=== PATIENT | female | born 1970 | race Caucasian/White ===

== ENCOUNTER 2018-05-16 17:51 | Observation (INO) | payer OTHER ==
[2018-05-16 17:54] VITALS: BMI 30.2
[2018-05-16] MEDS ORDERED: Sodium Chloride 0.9% 1,000 ML IV SCH (18:30)
[2018-05-16 18:44] LABS: MONO # 0.5 K/uL (0.0-0.8)
[2018-05-16 18:47] LABS: INR 1.3
[2018-05-16 18:52] LABS: ALB/GLOB RATIO 1.2 (1.0-2.1); ALBUMIN 4.2 g/dL (3.5-5.0); ALT/SGPT 14 U/L (9-52); AST/SGOT 17 U/L (14-36); BLOOD UREA NITROGEN 7 mg/dL (7-17); CALCIUM 8.9 mg/dl (8.6-10.4); GFR NON-AFRICAN AMERICAN > 60; HDL CHOLESTEROL 37 mg/dL (30-70)
--- NOTE | 2018-05-16 18:56 | CT ---
Date of service: 05/16/2018 PROCEDURE: CT HEAD WITHOUT CONTRAST. HISTORY: Code Stroke Left facial numbness COMPARISON: None. TECHNIQUE: Axial computed tomography images were obtained through the head/brain without intravenous contrast. Supplemental Coronal and Sagittal projections created and reviewed. Radiation dose: Total exam DLP = <inf_radiation_dlp> mGy-cm. This CT exam was performed using one or more of the following dose reduction techniques: Automated exposure control, adjustment of the mA and/or kV according to patient size, and/or use of iterative reconstruction technique. FINDINGS: HEMORRHAGE: No intracranial hemorrhage. BRAIN: No mass effect or edema. No atrophy or chronic microvascular ischemic changes. VENTRICLES: Unremarkable. No hydrocephalus. CALVARIUM: Unremarkable. PARANASAL SINUSES: Unremarkable as visualized. No significant inflammatory changes. MASTOID AIR CELLS: Unremarkable as visualized. No inflammatory changes. OTHER FINDINGS: None. IMPRESSION: No acute intracranial abnormalities. No significant findings to account for the clinical presentation. Code stroke protocol: Study completed 18:35. Radiologist notified 18:48. Results conveyed verbally at 18:53 Interpretation finalized and available for review 18:54.
[2018-05-16 19:02] LABS: LDL CHOLESTEROL 123 mg/dL (0-129)
[2018-05-16 19:29] LABS: BASO % 0.4 % (0.0-2.0); NEUT # 6.9 K/uL (1.8-7.0)
--- NOTE | 2018-05-16 19:52 | C.PDOC ---
History Of Present Illness Patient is a 47 year old female, with a PMHx of RA and lupus, who presents to the ED c/o left face and left arm numbness that began at 8 in the morning. She denies any CP, SOB, weakness, slurred speech, or other medical complaints at moment. Time Seen by Provider: 05/16/18 18:12 Chief Complaint (Nursing): Palpitations History Per: Patient History/Exam Limitations: no limitations Recent travel outside of the [place]: No Additional History Per: Patient Past Medical History Reviewed: Historical Data, Nursing Documentation, Vital Signs Vital Signs: Last Vital Signs Temp 97.6 F 05/16/18 17:54 Pulse 85 05/16/18 19:02 Resp 18 05/16/18 19:02 BP 125/83 05/16/18 19:02 Pulse Ox 96 05/16/18 19:02 - Medical History PMH: Anemia, Anxiety Surgical History: No Surg Hx Family History: States: No Known Family Hx - Social History Hx Alcohol Use: No Hx Substance Use: No - Immunization History Hx Tetanus Toxoid Vaccination: No Hx Influenza Vaccination: No Hx Pneumococcal Vaccination: No Review Of Systems Constitutional: Negative for: Weakness Cardiovascular: Negative for: Chest Pain Respiratory: Negative for: Shortness of Breath Neurological: Positive for: Numbness (left face and left arm ). Negative for: Change in Speech Physical Exam - Physical Exam Appears: Non-toxic, No Acute Distress Skin: Normal Color, Warm, Dry Head: Atraumatic, Normacephalic Oral Mucosa: Moist Neck: Normal ROM, Supple Cardiovascular: Rhythm Regular, No Murmur Respiratory: Normal Breath Sounds, No Rales, No Rhonchi, No Wheezing Gastrointestinal/Abdominal: Soft, No Tenderness, No Guarding, No Rebound Extremity: Normal ROM Neurological/Psych: Oriented x3, Normal Speech, Normal Cognition ED Course And Treatment - Laboratory Results Result Diagrams: 05/16/18 18:34 05/16/18 18:34 Lab Results: PT 14.0 SECONDS (9.7-12.2) H 05/16/18 18:34 INR 1.3 05/16/18 18:34 APTT 33 SECONDS (21-34) 05/16/18 18:34 Troponin I < 0.0120 ng/mL (0.00-0.120) 05/16/18 18:34 Total Bilirubin 0.3 mg/dL (0.2-1.3) 05/16/18 18:34 AST 17 U/L (14-36) 05/16/18 18:34 ALT 14 U/L (9-52) 05/16/18 18:34 Alkaline Phosphatase 87 U/L (38-126) 05/16/18 18:34 Total Protein 7.6 g/dL (6.3-8.3) 05/16/18 18:34 Albumin 4.2 g/dL (3.5-5.0) 05/16/18 18:34 Globulin 3.4 gm/dL (2.2-3.9) 05/16/18 18:34 Albumin/Globulin Ratio 1.2 (1.0-2.1) 05/16/18 18:34 O2 Sat by Pulse Oximetry: 96 (on RA) Pulse Ox Interpretation: Normal - Other Rad CXR X-Ray: Viewed By Me, Read By Radiologist - CT Scan/US CT Head Other Rad Studies (CT/US): Read By Radiologist, Radiology Report Reviewed CT/US Interpretation: IMPRESSION: No acute intracranial abnormalities. No s ignificant findings to account for the clinical presentation. NIHSS Stroke Scale - Date/Time Evaluation Performed Date Performed: 05/16/18 Time Performed: 20:57 When Was NIHSS Performed: Baseline - How Severe is the Stroke Level of Consciousness: 0=Alert LOC to Questions: 0=Both comments correct LOC to commands: 0=Obeys both correctly Best Gaze: 0=Normal Visual: 0=No visual loss Facial: 0=Normal Motor Arm - Left: 0=No drift Motor Arm - Right: 0=No drift Motor Leg - Left: 0=No drift Motor Leg - Right: 0=No drift Limb Ataxia: 0=Absent Sensory: 1=Mild to moderate loss Best Language: 0=No aphasia Dysarthia: 0=Normal articulation Extinction & Inattention (Neglect): 0=Normal, no object Score: 1 rTPA Inclusion/Exclusion - Refusal of Treatment Patient Refused Treatment: No - Inclusion Criteria for Altepase Patient is 18 years or Older: Yes The Clinical Diagnosis of Ischemic Stroke That is Causing a Potentially Disabling Neurological Deficit: No Time of Onset is Well Established to be Less Than 270 Minute Before Treatment Would Begin: No Risk/Benefit Discussed With Patient/Family Member Present: No Medical Decision Making Medical Decision Making: code stroke - labs imagin gpendignPlan: CAT Head, EKG, Bloodwork, CXR, Urinalysis ordered and reviewed. IV Fluids administered. low nih not tpa candmatty. sujey tinoco. seen by pmd bedside. noted h/h. pt denies gi bleed refuses rectal asa given. accepted pmdekg nsr [address] twave changes Disposition - Disposition Disposition: HOSPITALIZED Disposition Time: 20:56 Condition: STABLE - Clinical Impression Clinical Impression: Numbness - Scribe Statement The provider has reviewed the documentation as recorded by the Dylan Tran All medical record entries made by the Dylan were at my direction and personally dictated by me. I have reviewed the chart and agree that the record accurately reflects my personal performance of the history, physical exam, medical decision making, and the department course for this patient. I have also personally directed, reviewed, and agree with the discharge instructions and disposition. Decision To Admit - Pt Status Changed To: Hospital Disposition Of: Observation - . Bed Request Type: Telemetry Admitting Physician: Page Garcia Patient Diagnosis: Numbness
[2018-05-16 20:02] LABS: EOS # 0.4 K/uL (0.0-0.7); EOS % 3.4 % (0.0-4.0); LYMPH # 4.1 K/uL (1.0-4.3); LYMPH % 34.3 % (20.0-40.0); MEAN CORPUSCULAR HEMOGLOBIN 13.1 pg (27.0-31.0); MEAN CORPUSCULAR HGB CONC 26.6 g/dL (33.0-37.0); MEAN PLATELET VOLUME 8.6 fL (7.2-11.7); NEUT % 57.9 % (50.0-75.0); RBC 6.15 Mil/uL (3.80-5.20); RED CELL DISTRIBUTION WIDTH 25.2 % (11.5-14.5)
[2018-05-16 20:07] LABS: MEAN CELL VOLUME 49.1 fL (81.0-99.0)
[2018-05-16 20:10] LABS: SQUAMOUS EPITHIAL 4 /hpf (0-5); URINE BACTERIA RARE (<OCC); URINE BILIRUBIN NEGATIVE (NEGATIVE); URINE BLOOD 1+ (NEGATIVE); URINE CLARITY Clear (Clear); URINE COLOR Straw (YELLOW); URINE GLUCOSE (UA) NORMAL (Normal); URINE LEUKOCYTE ESTERASE TRACE Leu/uL (Negative); URINE PROTEIN NEGATIVE (NEGATIVE); URINE UROBILINOGEN NORMAL mg/dL (0.2-1.0)
[2018-05-16 20:11] LABS: HCG,QUALITATIVE URINE NEGATIVE (NEGATIVE)
--- NOTE | 2018-05-16 23:11 | CP.PCM.HP ---
Past Patient History - Past Social History Smoking Status: Never Smoked - CARDIAC Hx Cardiac Disorders: Yes Other/Comment: leaky valve - PULMONARY Hx Respiratory Disorders: Yes Other/Comment: lung capacity = 70 percent - HEMATOLOGICAL/ONCOLOGICAL Hx Anemia: Yes - PSYCHIATRIC Hx Anxiety: Yes Hx Substance Use: No - SURGICAL HISTORY Hx Surgeries: Yes Other/Comment: fibroid removed Meds Allergies/Adverse Reactions: Allergies Allergy/AdvReac Type Severity Reaction Status Date / Time anesthetic Allergy Uncoded 05/16/18 17:53 Results - Vital Signs Recent Vital Signs: Last Vital Signs Temp 97.6 F 05/16/18 17:54 Pulse 73 05/16/18 20:30 Resp 16 05/16/18 20:30 BP 112/79 05/16/18 20:30 Pulse Ox 96 05/16/18 20:58 - Labs Result Diagrams: 05/16/18 18:34 05/16/18 18:34 Labs: Laboratory Results - last 24 hr 05/16/18 05/16/18 05/16/18 18:34 18:34 18:34 WBC 12.0 H RBC 6.15 H Hgb 8.0 L Hct 30.2 L MCV 49.1 L D MCH 13.1 L MCHC 26.6 L RDW 25.2 H Plt Count 388 MPV 8.6 Neut % (Auto) 57.9 Lymph % (Auto) 34.3 [place] % (Auto) 4.0 Eos % (Auto) 3.4 Baso % (Auto) 0.4 Neut # (Auto) 6.9 Lymph # (Auto) 4.1 [place] # (Auto) 0.5 Eos # (Auto) 0.4 Baso # (Auto) 0.0 Differential Comment PT 14.0 H INR 1.3 APTT 33 Sodium 138 Potassium 3.9 Chloride 102 Carbon Dioxide 27 Anion Gap 12 BUN 7 Creatinine 0.6 L Est GFR ( Amer) > 60 Est GFR (Non-Af Amer) > 60 Random Glucose 96 Hemoglobin A1c Calcium 8.9 Total Bilirubin 0.3 AST 17 ALT 14 Alkaline Phosphatase 87 Troponin I < 0.0120 Total Protein 7.6 Albumin 4.2 Globulin 3.4 Albumin/Globulin Ratio 1.2 Triglycerides 124 Cholesterol 179 LDL Cholesterol Direct 123 HDL Cholesterol 37 Urine Color Urine Clarity Urine pH Ur Specific [place] Urine Protein Urine Glucose (UA) Urine Ketones Urine Blood Urine Nitrate Urine Bilirubin Urine Urobilinogen Ur Leukocyte Esterase Urine WBC (Auto) Urine RBC (Auto) Ur Squamous Epith Cells Urine Bacteria Urine HCG, Qual Blood Type Antibody Screen 05/16/18 05/16/18 05/16/18 18:34 18:34 19:58 WBC RBC Hgb Hct MCV MCH MCHC RDW Plt Count MPV Neut % (Auto) Lymph % (Auto) [place] % (Auto) Eos % (Auto) Baso % (Auto) Neut # (Auto) Lymph # (Auto) [place] # (Auto) Eos # (Auto) Baso # (Auto) Differential Comment PT INR APTT Sodium Potassium Chloride Carbon Dioxide Anion Gap BUN Creatinine Est GFR ( Amer) Est GFR (Non-Af Amer) Random Glucose Hemoglobin A1c 6.1 Calcium Total Bilirubin AST ALT Alkaline Phosphatase Troponin I Total Protein Albumin Globulin Albumin/Globulin Ratio Triglycerides Cholesterol LDL Cholesterol Direct HDL Cholesterol Urine Color Straw Urine Clarity Clear Urine pH 7.0 Ur Specific [place] 1.004 Urine Protein Negative Urine Glucose (UA) Normal Urine Ketones Negative Urine Blood 1+ H Urine Nitrate Negative Urine Bilirubin Negative Urine Urobilinogen Normal Ur Leukocyte Esterase Trace Urine WBC (Auto) 3 Urine RBC (Auto) 1 Ur Squamous Epith Cells 4 Urine Bacteria Rare Urine HCG, Qual Negative Blood Type O POSITIVE Antibody Screen Negative
[2018-05-16 23:50] LABS: IRON 24 ug/dL (37-170)
[2018-05-17] LABS: % IRON SATURATION 6 (20-55); TOTAL IRON BINDING CAPACITY 391 ug/dL (250-450)
[2018-05-17 00:46] LABS: FERRITIN 11.6 ng/mL
[2018-05-17] MEDS: Sodium Chloride 0.9% 1,000 ML IV SCH ×3 (01:11→19:15)
[2018-05-17 01:16] LABS: FOLATE 17.3 ng/mL
[2018-05-17 01:48] VITALS: RESP 20
--- NOTE | 2018-05-17 08:23 | RAD ---
Chest x-ray single frontal view HISTORY: Code stroke. COMPARISON: 05/20/2016 Findings: No focal infiltrate or effusion. Heart size within normal limits. Impression: No focal infiltrate or effusion.
[2018-05-17 08:37] LABS: CK-MB < 0.22 ng/mL (0.0-3.38)
[2018-05-17] MEDS: guaiFENesin DM 200 mg-20 mg/10 ml UD PO PRN ×2 (11:55→21:46)
[2018-05-17] MEDS ORDERED: Gadodiamide 287 mg/ml 20 ml IV ONE (12:58)
--- NOTE | 2018-05-17 15:42 | MRI ---
Date of service: 05/17/2018 PROCEDURE: MRI BRAIN WITH AND WITHOUT CONTRAST HISTORY: CVA COMPARISON: Comparison made with CT scan brain dated 05/16/2018. TECHNIQUE: Multiplanar, multisequence MR images of the brain were obtained with and without intravenous contrast enhancement. FINDINGS: HEMORRHAGE: No acute parenchymal, subarachnoid or extra-axial hemorrhage. No evidence of hemosiderin deposition identified on gradient echo weighted sequence. DWI: No evidence of an acute or early subacute infarction seen on diffusion imaging. BRAIN PARENCHYMA: No mass,mass effect or edema. No atrophy or chronic microvascular ischemic changes. Mild atrophy.. ENHANCEMENT: No enhancing parenchymal nor extra-axial masses or collections. No evidence of unusual meningeal enhancement. VENTRICLES: No obstructive hydrocephalus. CRANIUM: Unremarkable. ORBITS: Grossly unremarkable. PARANASAL SINUSES/MASTOIDS: Clear VASCULAR SYSTEM: Visualized major vascular flow voids at skull base appear patent. T OTHER FINDINGS: None . IMPRESSION: No acute intracranial hemorrhage or infarct. No enhancing lesions seen. Mild atrophy
--- NOTE | 2018-05-17 17:31 | CARD ---
APPROVED REPORT Date of service: 05/17/2018 EXAM: Two-dimensional and M-mode echocardiogram with Doppler and color Doppler. INDICATION Dyspnea Chest Pain 2D DIMENSIONS IVSd0.8 (0.7-1.1cm)Aortic Root (2D)3.1 (2.0-3.7cm) LVDd4.4 (3.9-5.9cm)PWd0.9 (0.7-1.1cm) LA Wokacy81 (18-58mL)LVDs2.9 (2.5-4.0cm) FS (%) 33.2 %LVEF (%)62.0 (>50%) LVEF (Borden's)58.76 %IVC0.00 cm M-Mode DIMENSIONS RVDd2.40 (2.1-3.2cm)Left Atrium (MM)3.45 (2.5-4.0cm) IVSd0.73 (0.7-1.1cm)Aortic Root2.70 (2.2-3.7cm) LVDd4.77 (4.0-5.6cm)Aortic Cusp Exc.2.05 (1.5-2.0cm) PWd0.85 (0.7-1.1cm)FS (%) 37 % LVDs3.01 (2.0-3.8cm)LVEF (%)67 (>50%) Mitral Valve MV E Nrdzusrv03.7cm/sMV A Qlbxsiaj39.7cm/sE/A ratio1.4 TDI Lateral E' Peak V13.39cm/sMedial E' Peak V7.97cm/sE/Lateral E'6.0 E/Medial E'10.1 Tricuspid Valve TR Peak Zhbgrrpl327au/sTR Peak Gr.[id number] LEFT VENTRICLE The left ventricle is normal size. There is normal left ventricular wall thickness. Left ventricle systolic function is normal. The Ejection Fraction is 60-65%. There is normal LV segmental wall motion. The left ventricular diastolic function is normal. There is no ventricular septal defect visualized. RIGHT VENTRICLE The right ventricle is normal size. The right ventricular systolic function is normal. ATRIA The left atrium size is normal. The right atrium size is normal. AORTIC VALVE The aortic valve is tri-cuspid. The aortic valve is normal in structure. No aortic regurgitation is present. There is no aortic valvular stenosis. MITRAL VALVE The mitral valve is normal in structure. There is no evidence of mitral valve prolapse. There is no mitral valve regurgitation noted. TRICUSPID VALVE The tricuspid valve is normal in structure. There is trace tricuspid regurgitation. Right ventricular systolic pressure is estimated at less than 30 mmHg. There is no pulmonary hypertension. PULMONIC VALVE The pulmonary valve is normal in structure. There is trace pulmonic valvular regurgitation. GREAT VESSELS The aortic root is normal in size. The ascending aorta is normal in size. The IVC is normal in size and collapses >50% with inspiration. PERICARDIAL EFFUSION There is no pericardial effusion. <Conclusion> Left ventricle systolic function is normal. The Ejection Fraction is 60-65%. The left ventricular diastolic function is normal.
[2018-05-18] MEDS: Sodium Chloride 0.9% 1,000 ML IV SCH ×2 (02:28→05:24)
[2018-05-18 11:36] LABS: HEMOGLOBIN 7.2 g/dL (11.0-16.0); MEAN CELL VOLUME 49.6 fL (81.0-99.0); MEAN CORPUSCULAR HEMOGLOBIN 13.9 pg (27.0-31.0); MEAN PLATELET VOLUME 8.8 fL (7.2-11.7); RBC 5.19 Mil/uL (3.80-5.20); RED CELL DISTRIBUTION WIDTH 24.8 % (11.5-14.5); WHITE BLOOD COUNT 10.1 K/uL (4.8-10.8)
[2018-05-18 12:01] LABS: ALB/GLOB RATIO 1.2 (1.0-2.1); ALBUMIN 3.4 g/dL (3.5-5.0); ALT/SGPT 16 U/L (9-52); AST/SGOT 16 U/L (14-36); BLOOD UREA NITROGEN 5 mg/dL (7-17); CALCIUM 7.9 mg/dl (8.6-10.4); GFR NON-AFRICAN AMERICAN > 60
--- NOTE | 2018-05-18 12:02 | CP.PCM.CON ---
History of Present Illness - History of Present Illness History of Present Illness: Neurology consult called by Dr. Garcia 47 yr old woman, who was admitted for severe tingling and numbness of her left temporal region not Associated with aphasia, confusion, weakness or headache. Miss Moran has been admitted multiple times for similar complaints but has had normal neuroimaging, as well as normal labwork. Today, she appears very uncomfortable and has just returned from MRI Brain. She would not walk for me but i did not appreciate any ataxia. ROS: no aphasia, no nausea, no vomiting, no diarrhea, no headache, no weakness On exam: NOrmal neurological exam Past Patient History - Past Social History Smoking Status: Never Smoked - CARDIAC Hx Cardiac Disorders: Yes Other/Comment: leaky valve - PULMONARY Hx Respiratory Disorders: Yes Other/Comment: lung capacity = 70 percent - HEMATOLOGICAL/ONCOLOGICAL Hx Anemia: Yes - MUSCULOSKELETAL/RHEUMATOLOGICAL Hx Falls: No - PSYCHIATRIC Hx Anxiety: Yes Hx Substance Use: No - SURGICAL HISTORY Hx Surgeries: Yes Other/Comment: fibroid removed Meds Allergies/Adverse Reactions: Allergies Allergy/AdvReac Type Severity Reaction Status Date / Time anesthetic Allergy Uncoded 05/16/18 17:53 - Medications Medications: Current Medications Acetaminophen (Tylenol 325mg Tab) 650 mg PO Q6 PRN PRN Reason: Pain, moderate (4-7) Last Admin: 05/17/18 21:49 Dose: 650 mg Guaifenesin/Dextromethorphan (Robitussin Dm) 10 ml PO Q4H PRN PRN Reason: Cough and congestion Last Admin: 05/17/18 21:46 Dose: 10 ml Heparin Sodium (Porcine) (Heparin) 5,000 units SC Q8 [facility] Last Admin: 05/18/18 06:43 Dose: 5,000 units Sodium Chloride (Sodium Chloride 0.9%) 1,000 mls @ 100 mls/hr IV .Q10H [place] Last Admin: 05/16/18 18:56 Dose: 100 mls/hr Sodium Chloride (Sodium Chloride 0.9%) 1,000 mls @ 100 mls/hr IV .Q10H [facility] Last Admin: 05/18/18 05:24 Dose: Not Given Pantoprazole Sodium (Protonix Inj) 40 mg IVP DAILY [facility] Last Admin: 05/18/18 09:30 Dose: 40 mg Physical Exam - Constitutional Appears: Well - Head Exam Head Exam: ATRAUMATIC, NORMAL INSPECTION, NORMOCEPHALIC - Eye Exam Eye Exam: EOMI, Normal appearance, PERRL Pupil Exam: NORMAL ACCOMODATION, PERRL - ENT Exam ENT Exam: Mucous Membranes Moist, Normal Exam - Neck Exam Neck exam: Positive for: Normal Inspection - Respiratory Exam Respiratory Exam: Clear to Auscultation Bilateral, NORMAL BREATHING PATTERN - Cardiovascular Exam Cardiovascular Exam: REGULAR RHYTHM - GI/Abdominal Exam GI & Abdominal Exam: Normal Bowel Sounds, Soft. absent: Tenderness - Rectal Exam Rectal Exam: Deferred, NORMAL INSPECTION - Exam Exam: Circumcision, NORMAL INSPECTION. absent: Scrotal Swelling, Testicular Tenderness, Uretheral Discharge, Testicular Vertical Lie, Bladder Distension External exam: NORMAL EXTERNAL EXAM. absent: Ecchymosis, Erythema, Lacerations, Lesions, Swelling Speculum exam: absent: Cervical Discharge, Erythema, Foreign Body, Laceration, NORMAL SPECULUM EXAM, Tissue, Vaginal Bleeding, Vaginal Discharge Bimanual exam: NORMAL BIMANUAL EXAM - Extremities Exam Extremities exam: Positive for: normal inspection - Back Exam Back exam: NORMAL INSPECTION - Neurological Exam Neurological exam: Alert, CN II-XII Intact, Normal Gait, Oriented x3, Reflexes Normal - Expanded Neurological Exam Expanded Cranial nerves: EOM's Intact: Normal Ataxia: No Cerebellar Function: Finger to Nose: Normal, Heel to Parker: Normal, Romberg: Normal Sensory exam: Lower Extremity 2 Point Discrimination: Normal, Lower Extremity Light Touch: Normal, Lower Extremity Pin Prick: Normal, Lower Extremity Temperature: Normal, Upper Extremity 2 Point Discrimination: Normal, Upper Extremity Light Touch: Normal, Upper Extremity Pin Prick: Normal, Upper Extremit y Temperature: Normal Neuro motor strength exam: Left Upper Extremity: 5, Right Upper Extremity: 5, Left Lower Extremity: 5, Right Lower Extremity: 5 DTR: Achilles Tendon Left: 1+, Achilles Tendon Right: 1+, Bicep Left: 1+, Bicep Right: 1+, Brachioradialis Left: 1+, Brachioradialis Right: 1+, Patellar Left: 1+, Patellar Right: 1+ - Psychiatric Exam Psychiatric exam: Normal Affect, Normal Mood - Skin Skin Exam: Dry, Intact, Normal Color, Warm Results - Vital Signs Recent Vital Signs: Last Vital Signs Temp 97.5 F L 05/18/18 09:12 Pulse 74 05/18/18 09:12 Resp 20 05/18/18 09:12 BP 121/70 05/18/18 09:12 Pulse Ox 94 L 05/18/18 09:12 - Labs Result Diagrams: 05/18/18 11:31 05/18/18 11:31 Labs: Laboratory Results - last 24 hr 05/16/18 23:30 Rheumatoid Arth Interp Positive H Assessment & Plan - Assessment and Plan (Free Text) Assessment: Ct head: normal MRI BRain: normal, no stroke. A/P: 47 yr old woman with anxiety depression and what could be a variant of ice pick headache. Plan; 1. Neurontin 300 mg po daily. No further intervention at this time. Dr. De La Cruz
[2018-05-18 12:50] LABS: LYMPH # 3.2 K/uL (1.0-4.3); MONO # 0.6 K/uL (0.0-0.8); NEUT # 5.9 K/uL (1.8-7.0)
[2018-05-18 12:51] LABS: EOS # 0.4 K/uL (0.0-0.7)
[2018-05-18] MEDS ORDERED: Ferric Sodium Gluconat Complex 125 MG in Sodium Chloride 0.9% 100 ML IVPB SCH (13:00)
[2018-05-18] MEDS ORDERED: Ferric Sodium Gluconat Complex 62.5 mg/5 ml Vial IVPB SCH (13:00)
[2018-05-18] MEDS: guaiFENesin DM 200 mg-20 mg/10 ml UD PO PRN ×2 (15:00→21:04)
[2018-05-19 07:51] VITALS: BP 120/85; PULSE 105; TEMP 98.3; O2SAT 96
[2018-05-19] MEDS ORDERED: Ferric Sodium Gluconat Complex 62.5 mg/5 ml Vial IVPB STA (08:01)
[2018-05-19] MEDS ORDERED: Ferric Sodium Gluconat Complex 125 MG in Sodium Chloride 0.9% 100 ML IVPB SCH (10:00)
[2018-05-19] MEDS: guaiFENesin DM 200 mg-20 mg/10 ml UD PO PRN (10:12)
[2018-05-19 11:25] LABS: HEMOGLOBIN 7.9 g/dL (11.0-16.0); MEAN CELL VOLUME 49.6 fL (81.0-99.0); MEAN CORPUSCULAR HEMOGLOBIN 13.6 pg (27.0-31.0); MEAN CORPUSCULAR HGB CONC 27.4 g/dL (33.0-37.0); MEAN PLATELET VOLUME 9.4 fL (7.2-11.7); RBC 5.8 Mil/uL (3.80-5.20); RED CELL DISTRIBUTION WIDTH 24.7 % (11.5-14.5); WHITE BLOOD COUNT 13.1 K/uL (4.8-10.8)
--- NOTE | 2018-05-19 12:18 | CARD ---
APPROVED REPORT Date of service: 05/16/2018 EKG Measurement Heart [id number] <Conclusion> Normal sinus rhythm Normal ECG
--- NOTE | 2018-05-19 13:56 | VASCLAB ---
Date of service: 05/17/2018 PROCEDURE: Carotid Duplex Exam. HISTORY: CVA COMPARISON: None available. TECHNIQUE: Grayscale and duplex Doppler evaluation of the cervical carotid and vertebral arteries were performed. The common carotid, carotid bifurcations and cervical Internal Carotid Artery (ICA) and proximal External Carotid Artery (ECA) were evaluated. The vertebral arteries were evaluated for gross patency and flow direction. Report prepared by DESHAWN Campbell FINDINGS: RIGHT CAROTID ARTERIES: 1. Common Carotid Artery: No significant focal plaque formation of the right common carotid artery. Maximum Peak Systolic velocity: 65 cm/sec: End-diastolic velocity 22 cm/sec. 2. Carotid Bifurcation: plaque formation. Maximum Peak Systolic velocity: 47 cm/sec: End-diastolic velocity 19 cm/sec. 3. Internal Carotid Artery: Plaque description: 3.1. Proximal Segment: Peak systolic velocity 61 cm/sec: End-diastolic velocity 30 cm/sec - % stenosis 0-15% 3.2. Middle Segment: Peak systolic velocity 88 cm/sec: End-diastolic velocity 39 cm/sec - % stenosis 0-15% 3.3. Distal Segment: Peak systolic velocity 51 cm/sec: End-diastolic velocity 26 cm/sec - % stenosis 0-15% 4. External Carotid Artery: No significant focal plaque formation. Peak systolic velocity 59 cm/sec 5. ICA/CCA Ratio: 1.5 LEFT CAROTID ARTERIES: 1. Common Carotid Artery: No significant focal plaque formation of the left common carotid artery. Maximum Peak Systolic velocity: 96 cm/sec: End-diastolic velocity 27 cm/sec. 2. Carotid Bifurcation: plaque formation. Maximum Peak Systolic velocity: 51 cm/sec: End-diastolic velocity 20 cm/sec. 3. Internal Carotid Artery: Plaque description: 3.1. Proximal Segment: Peak systolic velocity 72 cm/sec: End-diastolic velocity 30 cm/sec - % stenosis 0-15% 3.2. Middle Segment: Peak systolic velocity 104 cm/sec: End-diastolic velocity 38 cm/sec - % stenosis 0-15% 3.3. Distal Segment: Peak systolic velocity 90 cm/sec: End-diastolic velocity 35 cm/sec - % stenosis 0-15% 4. External Carotid Artery: No significant focal plaque formation. Peak systolic velocity 100 cm/sec 5. ICA/CCA Ratio: 1.6 VERTEBRAL ARTERIES: 1. Right Vertebral Artery: The right vertebral artery flow direction is antegrade. 2. Left Vertebral Artery: The left vertebral artery flow direction is antegrade. OTHER FINDINGS: 1. Right Brachial Blood pressure: 100/80 mmHg. 2. Left Brachial Blood pressure: 110/80 mmHg. IMPRESSION: RIGHT: Duplex scan does not suggest hemodynamically significant stenosis of the right extracranial carotid arteries. LEFT: Duplex scan does not suggest hemodynamically significant stenosis of the left extracranial carotid arteries.
[2018-05-20 13:13] LABS: ANA PATTERN CENTROMERE
== END 2018-05-19 13:43 | disposition home or self-care (01) ==
LOC: C.ER 17:51 → C.9E 20:12 → C.6T 23:06
PROVIDERS: ADMIT Internal Medicine; ATTEND Internal Medicine
DX: R20.2 Paresthesia of skin (principal); R20.0 Anesthesia of skin; M06.9 Rheumatoid arthritis, unspecified; M32.9 Systemic lupus erythematosus, unspecified; D64.9 Anemia, unspecified; F41.9 Anxiety disorder, unspecified; F32.9 Major depressive disorder, single episode, unspecified; Z86.79 Personal history of other diseases of the circulatory system; Z79.899 Other long term (current) drug therapy
CPT/HCPCS: 36415; 70450; 70553; 71045; 80053; 80061; 81001; 82607; 82728; 82746; 83036; 83540; 83550; 84443; 84484; 84703; 85025; 85027; 85044; 85610; 85651; 85730; 86038; 86039; 86140; 86430; 86850; 86900; 93005; 93306; 93880; 96360; 99285; A9579; C9113; G0378; J1644; J2916; J7030